=== PATIENT | female | born 1940 | race African-American/Black ===

== ENCOUNTER 2019-02-13 18:06 | Outpatient (CLI) | payer OTHER | END 2019-02-13 18:12 | disposition short-term general hospital (02) | LOC: AMB 18:06 | DX: R41.82 Altered mental status, unspecified (principal) | CPT/HCPCS: A0425; A0427 ==

== ENCOUNTER 2019-02-13 18:13 | Inpatient (IN) | payer OTHER ==
[~2019-02-13] VITALS: Ht 142.2 cm; Wt 54.5 kg
[2019-02-13 18:21] VITALS: BP 206/81
[2019-02-13 18:55] LABS: PLATELET COUNT 271 K/uL (152-353)
[2019-02-13 19:07] LABS: SODIUM 136 mmol/L (136-145)
[2019-02-13 21:13] VITALS: BP 171/66
[2019-02-14 01:31] VITALS: BP 176/54; TEMP 98.9; Ht 142.2 cm; Wt 54.5 kg
[2019-02-14 04:00] VITALS: BP 118/42; TEMP 98.6
[2019-02-14 08:00] VITALS: BP 139/50; TEMP 98
[2019-02-14 08:54] LABS: PLATELET COUNT 235 K/uL (152-353)
[2019-02-14 09:11] LABS: POTASSIUM 4.1 mmol/L (3.6-5.2)
[2019-02-14 12:00] VITALS: BP 166/60; TEMP 98.2
[2019-02-14 16:00] VITALS: BP 177/72; TEMP 98
[2019-02-14 20:00] VITALS: BP 159/57; TEMP 98.3
[2019-02-15] VITALS: BP 134/47; TEMP 98.9
[2019-02-15 03:59] VITALS: BP 142/52; TEMP 98.6
[2019-02-15 05:37] LABS: PLATELET COUNT 209 K/uL (152-353)
[2019-02-15 05:46] LABS: POTASSIUM 3.9 mmol/L (3.6-5.2)
[2019-02-15 08:00] VITALS: BP 144/51; TEMP 98.2
[2019-02-15 12:00] VITALS: BP 130/50; TEMP 98.5
[2019-02-15 16:00] VITALS: BP 123/44; TEMP 98.5
[2019-02-15 20:00] VITALS: BP 133/46; TEMP 98.7
[2019-02-16] VITALS: BP 152/58; TEMP 98.9
[2019-02-16 04:00] VITALS: BP 148/55; TEMP 98.8
[2019-02-16 08:00] VITALS: BP 142/65; TEMP 98.3
[2019-02-16 08:17] LABS: PLATELET COUNT 221 K/uL (152-353)
[2019-02-16 08:26] LABS: POTASSIUM 3.8 mmol/L (3.6-5.2)
[2019-02-16 12:00] VITALS: BP 154/55; TEMP 98.2
[2019-02-16] MEDS ORDERED: AMLODIPINE BESYLATE PO (14:00)
[2019-02-16] MEDS ORDERED: ATOR20TA2 PO (14:00)
== END 2019-02-16 15:25 | disposition home or self-care (01) | DRG 312 ==
LOC: ED 18:19 → MED/SURG 21:10
PROVIDERS: Family Medicine; ADMIT Emergency Medicine
DX: R55 Syncope and collapse (principal); I10 Essential (primary) hypertension; J44.9 Chronic obstructive pulmonary disease, unspecified; E78.49 Other hyperlipidemia; R41.82 Altered mental status, unspecified; R10.84 Generalized abdominal pain; F10.20 Alcohol dependence, uncomplicated; F43.0 Acute stress reaction
CPT/HCPCS: 80048; 80053; 80061; 80307; 81000; 82550; 82553; 84443; 84484; 85027; 93005; 94760; 96374; 99284; A9576; J1650; J2310

== ENCOUNTER 2021-05-27 10:34 | Emergency (ER) | payer OTHER ==
[~2021-05-27] VITALS: Ht 144.8 cm; Wt 59.0 kg
[~2021-05-27 10:34] MED LIST: AMLODIPINE BESYLATE PO; ATOR20TA2 PO
[2021-05-27 10:50] LABS: PLATELET COUNT 237 K/uL (152-353)
[2021-05-27 11:16] LABS: POTASSIUM 3.8 mmol/L (3.6-5.2)
[2021-05-27 12:55] VITALS: BP 156/72; TEMP 99
[2021-05-28] MEDS ORDERED: COATED ASPIRIN325 MG PO (08:21)
[2021-05-28] MEDS ORDERED: CARV6.25 PO (08:22)
== END 2021-05-27 12:55 | disposition still patient (30) ==
LOC: ED 10:34
PROVIDERS: Emergency Medicine
DX: I48.91 Unspecified atrial fibrillation (principal); R55 Syncope and collapse; R73.9 Hyperglycemia, unspecified
CPT/HCPCS: 80053; 80320; 84484; 85027; 93005; 99283

== ENCOUNTER 2021-05-27 12:11 | Observation (INO) | payer OTHER ==
[~2021-05-27] VITALS: Ht 144.8 cm; Wt 50.8 kg
[2021-05-27 15:09] VITALS: BP 130/57; TEMP 98.7; Ht 144.8 cm; Wt 50.8 kg
[2021-05-27 16:00] VITALS: BP 119/59; TEMP 98.6
[2021-05-27 19:50] VITALS: BP 128/65; TEMP 98.1
--- NOTE | 2021-05-27 22:44 | NUR ---
HR IS 73 AND FINE A FIB NOTED. PT IS WITHOUT COMPLAINTS OF CHEST PAIN OR ANY DISCOMFORT. PT IS ON TELEMETRY AND BEING MONITORED. PT'S GRADDAUGHTER IS AT BEDSIDE.
[2021-05-28] VITALS: BP 133/69; TEMP 98.5
--- NOTE | 2021-05-28 01:13 | NUR ---
HR 72 AND MONITORING TELEMETRY. PT IS RESTING WITH EYES CLOSED.
[2021-05-28 04:01] VITALS: BP 149/69; TEMP 98.5
[2021-05-28 05:19] LABS: PLATELET COUNT 230 K/uL (152-353)
--- NOTE | 2021-05-28 05:21 | NUR ---
HR IS 77. NO COMPLAINTS VOICED. PT HAS RESTED. GRANDDAUGHTER AT BEDSIDE.
[2021-05-28 05:25] LABS: POTASSIUM 3.7 mmol/L (3.6-5.2)
[2021-05-28 08:00] VITALS: BP 131/63; TEMP 98.3
[2021-05-28] MEDS ORDERED: COATED ASPIRIN325 MG PO (08:21)
[2021-05-28] MEDS ORDERED: CARV6.25 PO (08:22)
--- NOTE | 2021-05-28 09:35 | NUR ---
PATIENTS GRANDDAUGHTER GIVEN DISCHARGE INSTRUCTIONS WITH VERBAL UNDERSTANDING NOTED. PATIENT GIVEN RX FOR COREG TO TAKE DIRECTED. PATIENT IS TO FOLLOW UP WITH [facility] ASSIST[facility] FOR MEDICATIONS AND PHYSICIAN ASSISTANCE. GRANDDAUGHTER UNDERSTOOD ALL DIRECTIONS. IV 20G REMOVED FROM THE LEFT AC WITH TIP INTACT. PATIENT IS IN NO ACUTE DISTRESS AND DENIES ANY CHEST PAIN AT THE TIME OF DISCHARGE.PATIENT WHEELED TO POV WITHOUT INCIDENT.
--- NOTE | 2021-05-31 16:56 | NUR ---
pt scheduled with her PCP Alma Mclain, [employer] ATTENDANT @ [facility] [phone] for fu 06/02/21 @ 11:15am in [place], Faxed her office the discharge summary, notified the pts caregiver, Isabel Schmitt, who stated she will make sure she takes her to the appointment.
== END 2021-05-28 09:35 | disposition home or self-care (01) ==
LOC: MED/SURG 12:11
PROVIDERS: ADMIT Emergency Medicine; ATTEND Internal Medicine Endocrinology, Diabetes & Metabolism
DX: I48.91 Unspecified atrial fibrillation (principal); R55 Syncope and collapse; R73.9 Hyperglycemia, unspecified; F43.0 Acute stress reaction
CPT/HCPCS: 80048; 83036; 84443; 85027; 99220; G0378; G0379

== ENCOUNTER 2022-12-21 15:39 | Outpatient (CLI) | payer OTHER ==
[~2022-12-21 15:39] MED LIST changes: +CARV6.25 PO; +COATED ASPIRIN325 MG PO
== END 2022-12-21 19:35 | disposition home or self-care (01) ==
LOC: RAD 15:39
PROVIDERS: ATTEND Nurse Practitioner Family
DX: R09.89 Other specified symptoms and signs involving the circulatory and respiratory systems (principal)

== ENCOUNTER 2023-08-09 10:50 | Inpatient (IN) | payer OTHER ==
[~2023-08-09] VITALS: Ht 162.6 cm; Wt 47.4 kg
[2023-08-09] VITALS (8 sets, daily range): BP systolic 123–201; BP diastolic 58–94; TEMP 97.5–98.4; Ht 162.6 cm; Wt 47.4 kg
[2023-08-09 11:47] LABS: PLATELET COUNT 245 K/uL (152-353)
[2023-08-10] VITALS: BP 124/63; TEMP 98.5
[2023-08-10 04:00] VITALS: BP 133/72; TEMP 98.8
[2023-08-10 05:08] LABS: PLATELET COUNT 228 K/uL (152-353)
[2023-08-10 05:23] LABS: POTASSIUM 3.5 mmol/L (3.6-5.2)
[2023-08-10 08:00] VITALS: BP 134/60; TEMP 97.7
[2023-08-10 12:00] VITALS: BP 118/55; TEMP 98.5
[2023-08-10 16:00] VITALS: BP 112/46; TEMP 98.8
[2023-08-10 19:53] VITALS: BP 169/80; TEMP 98.1
[2023-08-11] VITALS (7 sets, daily range): BP systolic 108–145; BP diastolic 46–78; TEMP 97.2–99.3
[2023-08-12 03:54] VITALS: BP 128/57; TEMP 98.7
[2023-08-12 07:50] VITALS: BP 131/66; TEMP 97.9
[2023-08-12 11:55] VITALS: BP 119/74; TEMP 97.5
[2023-08-12 15:57] VITALS: BP 122/74; TEMP 97.8
[2023-08-12 19:40] VITALS: BP 121/64; TEMP 98.4
[2023-08-12 23:52] VITALS: BP 129/63; TEMP 98.4
[2023-08-13 03:36] VITALS: BP 116/66; TEMP 98
[2023-08-13 08:09] VITALS: BP 116/56; TEMP 98
== END 2023-08-13 10:00 | disposition home or self-care (01) | DRG 66 ==
LOC: ED 10:50 → MED/SURG 14:07
PROVIDERS: Family Medicine; ADMIT Internal Medicine Endocrinology, Diabetes & Metabolism; ATTEND Internal Medicine Endocrinology, Diabetes & Metabolism
DX: I63.9 Cerebral infarction, unspecified (principal); Z86.73 Personal history of transient ischemic attack (TIA), and cerebral infarction without residual deficits; I48.91 Unspecified atrial fibrillation; I10 Essential (primary) hypertension; R55 Syncope and collapse; Z87.891 Personal history of nicotine dependence
CPT/HCPCS: 36415; 80048; 80053; 80061; 81000; 84484; 85027; 93005; 96374; 96375; 96376; 99284; A9576; J2310; J2405